=== PATIENT | female | born 1985 | race African-American/Black ===

== ENCOUNTER 2017-08-07 15:43 | Emergency (ER) | payer OTHER ==
[~2017-08-07] VITALS: Ht 154.9 cm; Wt 81.7 kg
[~2017-08-07 15:43] MED LIST: FLAGYL500 MG PO; PHENERGAN 25 MG25 M1 PO; ZOFRAN 4 MG ORAL4 M1 DIS
[2017-08-07 16:05] LABS: URINE BILIRUBIN NEGATIVE (Negative); URINE BLOOD NEGATIVE (Negative); URINE CLARITY CLEAR; URINE COLOR YELLOW; URINE GLUCOSE-RANDOM* NEGATIVE (Negative); URINE KETONES NEGATIVE (Negative); URINE LEUKOCYTES-REFLEX NEGATIVE (Negative); URINE NITRITE-REFLEX NEGATIVE (Negative); URINE PROTEIN (DIPSTICK) NEGATIVE (Negative); URINE SPECIFIC GRAVITY 1.015 (1.005-1.035); URINE UROBILINOGEN 0.2 E.U./dl (0.2-1.0)
[2017-08-07 16:45] VITALS: BP 130/78
[2017-08-08 14:11] LABS: NEISSERIA GONORRHEA-PCR Negative (Negative)
== END 2017-08-07 16:46 | disposition home or self-care (01) ==
LOC: ER 15:43
PROVIDERS: Emergency Medicine
DX: Z20.2 Contact with and (suspected) exposure to infections with a predominantly sexual mode of transmission (principal)

== ENCOUNTER 2018-12-22 17:36 | Emergency (ER) | payer BC, OTHER ==
[~2018-12-22] VITALS: Ht 154.9 cm; Wt 83.9 kg
[2018-12-22 17:45] VITALS: BP 129/78
[2018-12-22] MEDS ORDERED: PENICILLIN V P500 MG PO (19:03)
[2018-12-22] MEDS ORDERED: NORCO 5-325 TA1 EAC1 PO (19:03)
== END 2018-12-22 19:25 | disposition home or self-care (01) ==
LOC: ER 17:36
DX: K08.89 Other specified disorders of teeth and supporting structures (principal); R51 Headache; Z98.890 Other specified postprocedural states

== ENCOUNTER 2020-12-19 19:07 | Emergency (ER) | payer OTHER ==
[~2020-12-19] VITALS: Ht 154.9 cm; Wt 88.9 kg
[~2020-12-19 19:07] MED LIST changes: +NORCO 5-325 TA1 EAC1 PO; +PENICILLIN V P500 MG PO
[2020-12-19 20:14] LABS: URINE BILIRUBIN NEGATIVE (Negative); URINE BLOOD NEGATIVE (Negative); URINE CLARITY CLEAR; URINE COLOR YELLOW; URINE GLUCOSE-RANDOM* NEGATIVE (Negative); URINE KETONES NEGATIVE (Negative); URINE LEUKOCYTES-REFLEX NEGATIVE (Negative); URINE NITRITE-REFLEX NEGATIVE (Negative); URINE PROTEIN (DIPSTICK) NEGATIVE (Negative); URINE UROBILINOGEN 0.2 E.U./dl (0.2-1.0)
[2020-12-19 21:03] LABS: ABSOLUTE NEUTROPHILS 3.7 thou/uL (1.4-8.2); BASOPHILS 1.2 % (0.0-2.0); EOSINOPHILS 0.7 % (0.0-3.0); HEMATOCRIT 35.9 % (37.0-47.0); HEMOGLOBIN 12.1 gm/dL (12.0-15.0); LYMPHOCYTES 42.6 % (24.0-44.0); MCH 28.7 pg (26.0-34.0); MCHC 33.6 g/dL (28.0-37.0); MCV 85.6 fL (80.0-100.0); MONOCYTES 6.2 % (1.0-8.0); PLATELET COUNT 270 thou/uL (150-400); POLYS 49.3 % (36.0-66.0); RBC 4.19 mil/uL (4.20-5.00); RDW 14.6 % (10.5-14.5); WBC 7.4 thou/uL (4.0-11.0)
[2020-12-19 21:10] LABS: CALCIUM 8.6 mg/dL (8.5-10.1); CREATININE 0.8 mg/dL (0.6-1.0); POTASSIUM 4.1 mmol/L (3.5-5.1)
[2020-12-19 23:39] VITALS: BP 130/75
== END 2020-12-19 23:39 | disposition home or self-care (01) ==
LOC: ER 19:07
PROVIDERS: Nurse Practitioner
DX: R10.31 Right lower quadrant pain (principal)

== ENCOUNTER 2021-05-15 11:23 | Emergency (ER) | payer OTHER ==
[~2021-05-15] VITALS: Ht 154.9 cm; Wt 88.0 kg
[2021-05-15 11:36] VITALS: BP 134/77
[2021-05-15 11:43] LABS: URINE BILIRUBIN NEGATIVE (Negative); URINE BLOOD 1+ (Negative); URINE CLARITY CLEAR; URINE COLOR YELLOW; URINE GLUCOSE-RANDOM* NEGATIVE (Negative); URINE KETONES NEGATIVE (Negative); URINE LEUKOCYTES-REFLEX NEGATIVE (Negative); URINE NITRITE-REFLEX NEGATIVE (Negative); URINE PROTEIN (DIPSTICK) NEGATIVE (Negative); URINE SPECIFIC GRAVITY <= 1.005 (1.005-1.035); URINE UROBILINOGEN 0.2 E.U./dl (0.2-1.0)
[2021-05-15 12:05] LABS: CASTS None Seen /LPF (None Seen); SQUAMOUS 4-10 Moderate /LPF (0-3); URINE RBC 1-2 Rare /HPF (NONE SEEN)
[2021-05-15 12:06] LABS: BACTERIA-REFLEX None Seen /HPF (None Seen); CRYSTALS None Seen /LPF (None Seen); URINE WBC-REFLEX None Seen /HPF (0-5)
[2021-05-15] MEDS ORDERED: METROGEL-VAGINA70 GM VAG (12:51)
== END 2021-05-15 12:57 | disposition home or self-care (01) ==
LOC: ER 11:23
PROVIDERS: Student in an Organized Health Care Education/Training Program
DX: N76.0 Acute vaginitis (principal); B96.89 Other specified bacterial agents as the cause of diseases classified elsewhere